=== PATIENT | female | born 1950 ===

== ENCOUNTER 2023-02-19 17:40 | Outpatient (REF) | payer OTHER, SELFPAY ==
[2023-02-19 15:29] LABS: Anion Gap 8.1 mmol/L (3-11); BUN 26 mg/dL (7-18); CO2 25.9 mmol/L (21.0-32.0); CREATININE 0.9 mg/dL (0.55-1.02); Calcium 9.3 mg/dL (8.5-10.1); Chloride 104 mmol/L (98-107); Estimated GFR 68.35 (mL/min/1.73m2); Glucose 99 mg/dL (74-106); Magnesium 2.4 mg/dL (1.8-2.4); Potassium 4.4 mmol/L (3.5-5.1); Sodium 138 mmol/L (136-145)
[2023-02-19 15:50] LABS: Vitamin D 25 Total 55.4 ng/mL (30-100)
== END 2023-02-19 17:41 | disposition home or self-care (01) ==
LOC: NCHCN 17:40
PROVIDERS: Visit Provider Family Medicine
DX: E78.00 Pure hypercholesterolemia, unspecified (principal); E55.9 Vitamin D deficiency, unspecified; I10 Essential (primary) hypertension
CPT/HCPCS: 80048; 82306; 83735

== ENCOUNTER 2023-09-23 17:39 | Outpatient (REF) | payer OTHER, SELFPAY ==
[2023-09-23 21:31] LABS: ALT 27 U/L (14-59); AST 18 U/L (15-37); Albumin 3.6 g/dL (3.4-5.0); Alkaline Phosphatase 91 U/L (46-116); Anion Gap 7.5 mmol/L (3-11); BUN 26 mg/dL (7-18); Bilirubin, Total 0.3 mg/dL (0.2-1.0); CO2 25.5 mmol/L (21.0-32.0); CREATININE 0.8 mg/dL (0.55-1.02); Calcium 8.7 mg/dL (8.5-10.1); Chloride 107 mmol/L (98-107); Estimated GFR 78.24 (mL/min/1.73m2); Glucose 95 mg/dL (74-106); Lipase 64 U/L (16-77); Potassium 4.1 mmol/L (3.5-5.1); Sodium 140 mmol/L (136-145); TSH (W/Ref FT4) 1.62 uIU/mL (0.36-3.74); Total Protein 6.7 g/dL (6.4-8.2)
[2023-09-23 22:33] LABS: HCT 36.9 % (36.0-46.0); HGB 12.7 g/dL (11.2-15.7); MCH 31.4 pg (27.0-33.0); MCHC 34.4 % (32.0-36.0); MCV 91 fL (80-95); MPV 9.7 fL (8.0-11.0); Platelet Count 232 10^3/uL (130-400); RBC 4.04 10^6/uL (3.93-5.22); RDW 12.4 % (11.7-14.6); RDW-SD 41.5 fL; WBC 4.52 10^3/uL (4.4-10.8)
== END 2023-09-23 17:40 | disposition home or self-care (01) ==
LOC: NCHCN 17:39
PROVIDERS: Visit Provider Family Medicine
DX: R00.2 Palpitations (principal)
CPT/HCPCS: 80053; 83690; 85027; 84443